=== PATIENT | male | born 1985 | race Caucasian/White ===

== ENCOUNTER 2020-09-17 15:49 | Emergency (ER) | payer OTHER ==
[~2020-09-17] VITALS: Ht 177.8 cm; Wt 83.9 kg
[2020-09-17] MEDS ORDERED: ONDANSETRON HCL 4 MG/2 ML VIAL IV ONE (16:00)
[2020-09-17] MEDS ORDERED: HYDROmorphone HCL 2 MG/ML VL IV ONE (16:00)
[2020-09-17] MEDS ORDERED: SODIUM CHLORIDE 0.9% 1,000 ML IV ONE ×2 (16:15)
[2020-09-17] MEDS ORDERED: cefTRIAXone 1GM/50ML D5W 50 ML IV ONE (16:15)
[2020-09-17 16:30] VITALS: BP 135/82
== END 2020-09-17 17:10 ==
LOC: ER 15:49
DX: S81.801A Unspecified open wound, right lower leg, initial encounter (principal); X58.XXXA Exposure to other specified factors, initial encounter; Y93.89 Activity, other specified; Y92.89 Other specified places as the place of occurrence of the external cause; Y99.8 Other external cause status
CPT/HCPCS: 71045; 73130; 73590; 96365; 96375; 99284; J0696; J1170; J2405